=== PATIENT | female | born 1990 | race Caucasian/White ===

== ENCOUNTER 2021-02-28 13:03 | Emergency (ER) | payer SELFPAY ==
[~2021-02-28] VITALS: Ht 165.1 cm; Wt 100.0 kg
[2021-02-28] MEDS ORDERED: HYDROcodone/APAP 5/325MG 1 TAB TABLET PO ONE (14:00)
[2021-02-28] MEDS ORDERED: LIDOCAINE 1%/EPI 1:100,000 10 ML VIAL. INJ ONE (14:00)
--- NOTE | 2021-02-28 14:21 | PHYS DOC ---
Past History Past Surgical History: No Surgical History Alcohol Use: None General Adult EDM: Chief Complaint: LACERATION/AVULSION HPI: HPI: Patient is a 30-year-old female who presents with laceration to her right knee. Patient states "I was walking into the house and tripped over the door step and fell onto my knee". "I got into the bathtub and washed it out". Patient r eporting pain to her knee is worse with ambulation. Bleeding is controlled. Denies taking anything for pain prior to arrival. Unknown last tetanus. Denies medical history. Review of Systems: Review of Systems: Constitutional: Denies fever or chills Eyes: Denies change in visual acuity HENT: Denies nasal congestion or sore throat Respiratory: Denies cough or shortness of breath Cardiovascular: Denies chest pain or edema GI: Denies abdominal pain, nausea, vomiting, bloody stools or diarrhea : Denies dysuria Musculoskeletal: Denies back pain or joint pain Integument: Laceration to right knee Neurologic: Denies headache, focal weakness or sensory changes Endocrine: Denies polyuria or polydipsia Lymphatic: Denies swollen glands Psychiatric: Denies depression or anxiety Current Medications: Current Meds: Current Medications Medications (Trade) Dose Ordered Sig/Sandra Start Time Stop Time Status Last Admin Dose Admin Acetaminophen/ Hydrocodone Bitart (Lortab 5/325) 1 tab 1X ONCE 02/28/21 14:00 02/28/21 14:08 DC Diphtheria/ Pertussis/Tetanus Vacc (ADACEL TDap SYRINGE) 0.5 ml ONCE ONCE 02/28/21 14:30 02/28/21 14:31 Lidocaine/ Epinephrine (Xylocaine 1%-Epi 1:100,000) 10 ml 1X ONCE 02/28/21 14:00 02/28/21 14:08 DC Allergies: Allergies: Allergies Coded Allergies Type Severity Reaction Last Updated Verified No Known Drug Allergies 02/28/21 No Physical Exam: PE: Constitutional: Well developed, well nourished, no acute distress, non-toxic appearance. [] HENT: Normocephalic, atraumatic, bilateral external ears normal, oropharynx moist, no oral exudates, nose normal. [] Eyes: PERRLA, EOMI, conjunctiva normal, no discharge. [] Neck: Normal range of motion, no tenderness, supple, no stridor. [] Cardiovascular:Heart rate regular rhythm, no murmur [] Lungs & Thorax: Bilateral breath sounds clear to auscultation [] Abdomen: Bowel sounds normal, soft, no tenderness, no masses, no pulsatile masses. [] Skin: 7 cm laceration to knee, bleeding controlled Back: No tenderness, no CVA tenderness. [] Extremities: No tenderness, no cyanosis, no clubbing, ROM intact, no edema. [] Neurologic: Alert and oriented X 3, normal motor function, normal sensory function, no focal deficits noted. [] Psychologic: Affect normal, judgement normal, mood normal. [] Current Patient Data: Vital Signs: Vital Signs Date Time Temp Pulse Resp B/P (MAP) Pulse Ox O2 Delivery O2 Flow Rate FiO2 02/28/21 13:06 98.2 105 16 142/48 98 Room Air EKG: EKG: [] Radiology/Procedures: Radiology/Procedures: [] EXAMINATION: XR KNEE 3 VIEWS_RT CLINICAL HISTORY: Laceration TECHNIQUE: XR KNEE 3 VIEWS_RT Number of Images/Views: 3 COMPARISON: None FINDINGS: Joint spaces and alignment maintained. No acute fracture. Joint effusion. No retained radiopaque foreign body. Heterogeneous soft tissue changes along the medial aspect of the distal femur on the oblique view, possibly related to reported laceration. IMPRESSION: No acute osseous abnormality or retained radiopaque foreign body. Electronically signed by: Armando Pettit DO (02/28/2021 2:32 PM) [facility] Heart Score: C/O Chest Pain: No Risk Factors: Risk Factors: DM, Current or recent (<one month) smoker, HTN, HLP, family history of CAD, obesity. Risk Scores: Score 0 - 3: 2.5% MACE over next 6 weeks - Discharge Home Score 4 - 6: 20.3% MACE over next 6 weeks - Admit for Clinical Observation Score 7 - 10: 72.7% MACE over next 6 weeks - Early Invasive Strategies Course & Med Decision Making: Course & Med Decision Making Pertinent Labs and Imaging studies reviewed. (See chart for details) [] 22-year-old female presents with laceration to her right knee after tripping on her doorstep. Wound was irrigated, wound numbed with lidocaine, 15, 4-0 sutures placed. Wound covered with gauze. Patient given instructions for suture removal and signs of infection. Patient states that she understands discharge instructions. Patient was given a knee immobilizer, and Keflex to prevent infection. Patient instructed to rest for the first couple of days. X- ray of knee was obtained. No fracture or foreign body noted. Patient denies pain at the hip or at ankle. No indication for other imaging at this time. Patient is requesting a work note also a referral for a PCP. Dragon Disclaimer: Dragon Disclaimer: This electronic medical record was generated, in whole or in part, using a voice recognition dictation system. Laceration Repair Lac Repair Indication: Laceration to right knee Procedure: The patient was placed in the appropriate position and anesthesia around the right knee lidocaine with epi. The area was then cleansed with normal saline. The wound area was then dressed with gauze. Total repaired wound length: 7 cm The patient tolerated the procedure well Complications: No complications. Departure Departure: Impression: Primary Impression: Laceration of knee, right Qualified Codes: S81.011A - Laceration without foreign body, right knee, initial encounter Disposition: HOME / SELF CARE / HOMELESS Condition: STABLE Referrals: PCP,NO (PCP) Patient Instructions: Laceration Care, Adult Additional Instructions: You were seen in the emergency room after a fall and laceration to your right knee. Giving a prescription for Keflex, please take as directed and in full. You can take ibuprofen and Tylenol at home for discomfort. Please return in 7 to 10 days to have sutures removed. Keep the wound dry and clean. EMERGENCY DEPARTMENT GENERAL DISCHARGE INSTRUCTIONS Thank you for coming to [facility] (ED) today and trusting us with you care. We trust that you had a positivie experience in our Emergency Department. If you wish to speak to the department management, you may call the director at [phone]. YOUR FOLLOW UP INSTRUCTIONS ARE FOLLOWS: 1. Do you have a private Doctor? If you do not have a private doctor, please ask for a resource list of physicians or clinics that may be able to assist you with follo w up care. 2. The Emergency Physician has interpreted your x-rays. The X-Ray specialist will also review them. If there is a change in the findings, you will be notified in 48 hours when at all possible. 3. A lab test or culture has been done, your results will be reviewed and you will be notified if you need a change in treatment. ADDITIONAL INSTRUCTIONS AND INFORMATION: 1. Your care today has been supervised by a physician who is specially trained in emergency care. Many problems require more than one evaluation for a complete diagnosis and treatment. We recommend that you schedule your follow up appointment as rec ommended to ensure complete treatment of you illness or injury. If you are unable to obtain follow up care and continue to have a problem, or if your condition worsens, we recommend that you return to the ED. 2. We are not able to safely determine your condition over the phone nor are we able to give sound medical advice over the phone. For these safety reasons, if you call for medical advice we will ask you to come to the ED for further evaluation. 3. If you have any questions regarding these discharge instructions please call the ED at [phone]. SAFETY INFORMATION: In the interest of safety, wellness, and injury prevention; we encourage you to wear your sealbelt, if you smoke; quite smoking, and we encourage family to use a protective helmet for bicycling and other sporting events that present an increased risk for head injury. IF YOUR SYMPTOMS WORSEN OR NEW SYMPTOMS DEVELOP, OR YOU HAVE CONCERNS ABOUT YOUR CONDITION; OR IF YOUR CONDITION WORSENS WHILE YOU ARE WAITING FOR YOUR FOLLOW UP APPOINTMENT; EITHER CONTACT YOUR PRIMARY CARE DOCTOR, THE PHYSICIAN WHOSE NAME AND NUMBER YOU WERE GIVEN, OR RETURN TO THE ED IMMEDIATELY. Scripts Cephalexin (CEPHALEXIN) 500 Mg Tablet 1 TAB PO BID for LACERATION for 5 Days, #10 TAB Prov: GELACIO LUONG APRN 02/28/21 GELACIO LUONG APRN Feb 28, 2021 14:21
[2021-02-28] MEDS ORDERED: DIPH,PERTUSS(ACELL),TET VAC/PF 0.5 ML SYRINGE. VAX IM ONE (14:30)
--- NOTE | 2021-02-28 14:34 | RAD ---
EXAMINATION: XR KNEE 3 VIEWS_RT CLINICAL HISTORY: Laceration TECHNIQUE: XR KNEE 3 VIEWS_RT Number of Images/Views: 3 COMPARISON: None FINDINGS: Joint spaces and alignment maintained. No acute fracture. Joint effusion. No retained radiopaque fore ign body. Heterogeneous soft tissue changes along the medial aspect of the distal femur on the obliqu e view, possibly related to reported laceration. IMPRESSION: No acute osseous abnormality or retained radiopaque foreign body. Electronically signed by: Armando Pettit DO (02/28/2021 2:32 PM) [facility]
[2021-02-28] MEDS ORDERED: CEPH500T PO (16:49)
[2021-02-28 17:10] VITALS: BP 101/71
== END 2021-02-28 17:14 | disposition home or self-care (01) ==
LOC: ER 13:03
DX: S81.011A Laceration without foreign body, right knee, initial encounter (principal); W18.09XA Striking against other object with subsequent fall, initial encounter; Y93.01 Activity, walking, marching and hiking; Y92.89 Other specified places as the place of occurrence of the external cause; Y99.8 Other external cause status
CPT/HCPCS: 12002; 73562; 90471; 90715; 99284